=== PATIENT | female | born 1970 | race African-American/Black ===

== ENCOUNTER 2021-04-29 18:28 | Emergency (ER) | payer MEDICAID ==
[~2021-04-29] VITALS: Ht 172.7 cm; Wt 91.0 kg
[2021-04-29 19:24] VITALS: BP 144/83
[2021-04-29] MEDS ORDERED: ACET-2708 MT (20:23)
[2021-04-29] MEDS ORDERED: ACETAMINOPHEN 325MG TABLET PO ONE (20:30)
== END 2021-04-29 21:33 | disposition home or self-care (01) ==
LOC: ER 18:28
DX: S63.697A Other sprain of left little finger, initial encounter (principal); W23.0XXA Caught, crushed, jammed, or pinched between moving objects, initial encounter; Y93.89 Activity, other specified; Y92.89 Other specified places as the place of occurrence of the external cause; R03.0 Elevated blood-pressure reading, without diagnosis of hypertension
CPT/HCPCS: 29130; 73130; 99283